=== PATIENT | female | born 1940 | race Caucasian/White ===

== ENCOUNTER 2018-05-31 12:03 | Emergency (ER) | payer OTHER ==
[2018-05-31] MEDS: ONDANSETRON (ODT) 4 MG TAB ODT (15:26)
[2018-05-31] MEDS: MECLIZINE 12.5 MG TAB PO (15:26)
[2018-05-31 15:38] LABS: ADD MAN DIFF? NO
[2018-05-31 15:42] LABS: BASOPHILS % 0.3 % (0.0-2.0); EOSINOPHILS # 0.1 10^3/ul (0.0-0.5); HEMATOCRIT 40.1 % (37.0-47.0); HEMOGLOBIN 13.4 g/dl (12.0-16.0); LYMPHOCYTES # 2.3 10^3/ul (0.8-2.9); LYMPHOCYTES % 32.8 % (15.0-51.0); MEAN CORPUSCULAR HEMOGLOBIN 32.5 pg (29.0-33.0); MEAN CORPUSCULAR HGB CONC 33.4 g/dl (32.0-37.0); MEAN CORPUSCULAR VOLUME 97.3 fl (82.0-101.0); MEAN PLATELET VOLUME 10.2 fl (7.4-10.4); MONOCYTE # 0.4 10^3/ul (0.3-0.9); MONOCYTES % 6.1 % (0.0-11.0); NEUTROPHIL # 4.1 10^3/ul (1.6-7.5); NEUTROPHILS % 59.5 % (39.0-77.0); PLATELET COUNT 174 10^3/UL (140-415); RED BLOOD COUNT 4.12 10^6/ul (4.20-5.40); RED CELL DISTRIBUTION WIDTH 11.9 % (11.5-14.5)
[2018-05-31 15:42] LABS: WHITE BLOOD COUNT 6.9 10^3/ul (4.8-10.8)
[2018-05-31 15:49] LABS: ADD UMIC YES; UR ASCORBIC ACID NEGATIVE (NEGATIVE); UR BILIRUBIN (Dip) NEGATIVE (NEGATIVE); UR BLOOD (Dip) NEGATIVE (NEGATIVE); UR CLARITY CLEAR (CLEAR); UR COLOR YELLOW (YELLOW); UR GLUCOSE (Dip) NEGATIVE (NEGATIVE); UR KETONES (Dip) NEGATIVE (NEGATIVE); UR LEUKOCYTE ESTERASE (Dip) TRACE Leu/ul (NEGATIVE); UR NITRITE (Dip) NEGATIVE (NEGATIVE); UR RBC 2 /HPF (0-5); UR SPECIFIC GRAVITY (Dip) 1.008 (1.003-1.030); UR SQUAMOUS EPITHELIAL CELL FEW /HPF (FEW); UR TOTAL PROTEIN (Dip) NEGATIVE (NEGATIVE); UR UROBILINOGEN (Dip) NEGATIVE (NEGATIVE); UR WBC 4 /HPF (0-5)
[2018-05-31 15:59] LABS: ANION GAP 6 (5-13); BLOOD UREA NITROGEN 12 mg/dl (7-20); CALCIUM 10.1 mg/dl (8.4-10.2); CARBON DIOXIDE 33 mmol/L (21-31); CHLORIDE 99 mmol/L (97-110); CREATININE 0.78 mg/dl (0.44-1.00); GLUCOSE 192 mg/dl (70-220); POTASSIUM 4.4 mmol/L (3.5-5.1); SODIUM 138 mmol/L (135-144)
[2018-05-31] MEDS: CEPHALEXIN 500 MG CAP PO (16:35)
== END 2018-05-31 16:46 | disposition home or self-care (01) ==
LOC: FTE 12:03
DX: N30.00 Acute cystitis without hematuria (principal)
CPT/HCPCS: 36415; 70450; 80048; 81001; 85025; 93005; 99285-25

== ENCOUNTER 2018-06-14 11:46 | Emergency (ER) | payer OTHER ==
[2018-06-14] MEDS: IBUPROFEN 800 MG TAB PO (14:54)
== END 2018-06-14 14:59 | disposition home or self-care (01) ==
LOC: FTE 11:46 → E/R 14:59
DX: H60.91 Unspecified otitis externa, right ear (principal)
CPT/HCPCS: 99283